=== PATIENT | female | born 1940 | race Caucasian/White ===

== ENCOUNTER → 2017-08-05 10:15 | Outpatient (REF) | payer MEDICARE, SELFPAY | LOC: OLS.ACW300 10:15 | PROVIDERS: Visit Provider Family Medicine | DX: I10 Essential (primary) hypertension (principal); Z96.651 Presence of right artificial knee joint; R27.9 Unspecified lack of coordination; M62.81 Muscle weakness (generalized); M50.320 Other cervical disc degeneration, mid-cervical region, unspecified level | CPT/HCPCS: 87804 ==

== ENCOUNTER → 2017-12-04 05:15 | Outpatient (REF) | payer MEDICARE, SELFPAY ==
[2017-12-04 18:08] LABS: Color, Urine Yellow (Yellow); Glucose, Dipstick Normal (Normal); Ketone-Dipstick 5 mg/dl (Negative); Leukocyte Esterase-Dipstick 25 /ul (Negative); Nitrite-Dipstick Positive (Negative); Occult Blood-Urine 10 /ul (Negative); Protein-Dipstick 100 mg/dl (Negative); Specific Gravity, Urine 1.015 (1.002-1.030); Urine Clarity Clear (Clear); Urine Urobilinogen 4 mg/dl (Normal)
[2017-12-04 18:11] LABS: Hematocrit 36.4 % (37-47); Hemoglobin 12.7 g/dl (12.0-15.0); Mean Corp Hgb Conc 34.9 g/gl (32-36); Mean Corpuscular Hgb 31.6 pg (27.0-32.0); Mean Corpuscular Volume 90.5 fL (81-99); Mean Platelet Vol. 9.3 fl (6.2-12.0); Platelet Count 506 K/mm3 (150-450); RBC Distribution Width CV 13.1 % (11.6-14.6); RBC Distribution Width SD 42.7 fl (35.1-43.9); Red Blood Count 4.02 M/mm3 (4.2-5.4); Scan Indicated on CBC? Y/N NO; White Blood Count 25.3 K/mm3 (4.4-11.0)
[2017-12-04 18:11] LABS: Urine Bilirubin Dipstick 3 mg/dL (Negative)
[2017-12-04 18:21] LABS: Anion Gap 16 (5-15); BUN 31 mg/dL (7-18); Calcium,Total 8.7 mg/dL (8.5-10.1); Chloride 98 mmol/L (98-107); Creatinine, Serum 1.07 mg/dL (0.55-1.02); EST Glomerular Filtration Rate 53 mL/min (>60); Est Glom Filt Rate - Afr Amer 64 mL/min (>60); Glucose 135 mg/dL (74-106); Potassium 4.7 mmol/L (3.5-5.1); Sodium Level 130 mmol/L (136-145)
== END ==
LOC: OLS.ACW300 05:15
PROVIDERS: Visit Provider Family Medicine
DX: I10 Essential (primary) hypertension (principal); Z96.651 Presence of right artificial knee joint; R27.9 Unspecified lack of coordination; M62.81 Muscle weakness (generalized); M50.320 Other cervical disc degeneration, mid-cervical region, unspecified level
CPT/HCPCS: 36415; 80048; 81002; 85027; 87086